=== PATIENT | female | born 1995 | race African-American/Black ===

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

== ENCOUNTER 2019-06-26 16:33 | Emergency (ER) | payer OTHER ==
[~2019-06-26] VITALS: Ht 162.6 cm; Wt 129.5 kg
[2019-06-26 16:55] VITALS: Ht 162.6 cm; Wt 129.5 kg
[2019-06-26 17:23] LABS: BASOPHILS 0.3 % (0-2); EOSINOPHILS 1.3 % (0-7); HEMATOCRIT 32.6 % (36.0-48.0); HEMOGLOBIN 10.7 g/dL (12-16); IMMATURE GRANULOCYTES 0.1 % (0-5); LYMPHOCYTES 52.3 % (15-50); MCH 29.6 pg (26.0-34.0); MCHC 32.8 g/dL (31.0-37.0); MCV 90.1 fL (80.0-100.0); MEAN PLATELET VOLUME 7.7 fL (7.4-10.4); RBC 3.62 10x6/uL (4.00-5.40); RDW 13.1 % (11.5-14.5); WBC 7.6 10x3/uL (4.8-10.8)
[2019-06-26 17:25] LABS: PLATELET COUNT 276 10x3/uL (130-400)
[2019-06-26 17:43] LABS: CALC OSMOLALITY 277 mosm/kg (275-300); CARBON DIOXIDE 30.7 mmol/L (21.0-32.0); CHLORIDE - SERUM 106 mmol/L (98-107); CREATININE - SERUM 0.8 mg/dL (0.6-1.3); GLUCOSE 77 mg/dL (74-106); POTASSIUM - SERUM 3.8 mmol/L (3.5-5.1); SODIUM 140 mmol/L (136-145); UREA NITROGEN 13 mg/dL (7-18); eGFR NON AFRICAN AMERICAN > 90 mL/min (90-120)
[2019-06-26 17:53] LABS: BILIRUBIN NEGATIVE (NEGATIVE); EPITHELIAL CELLS OCC /hpf (0-5); GLUCOSE NEGATIVE (NEGATIVE); KETONE NEGATIVE (NEGATIVE); NITRITE NEGATIVE (NEGATIVE); RED CELLS - URINE >50 /hpf (0-5); UROBILINOGEN NORMAL (NORMAL); WHITE CELLS - URINE OCC /hpf (NEGATIVE)
[2019-06-26 17:54] LABS: HCG URINE NEGATIVE (NEGATIVE)
[2019-06-26 17:56] LABS: ALBUMIN 3.4 g/dL (3.4-5.0); ALKALINE PHOSPHATASE 66 U/L (30-120); ALT (SGPT) 39 U/L (10-68); BILIRUBIN - TOTAL 0.33 mg/dL (0.2-1.3); PROTEIN - SERUM 8.4 g/dL (6.4-8.2)
[2019-06-26 18:21] LABS: HCG SERUM NEGATIVE (NEGATIVE)
[2019-06-26 21:07] VITALS: BP 142/76
== END 2019-06-26 21:07 | disposition home or self-care (01) ==
LOC: D.ER 16:33
PROVIDERS: Family Medicine
DX: N94.6 Dysmenorrhea, unspecified (principal)